=== PATIENT | female | born 1995 | race Caucasian/White ===

== ENCOUNTER 2022-04-05 13:20 | Inpatient (IN) | payer OTHER ==
[~2022-04-05] VITALS: Ht 160 cm; Wt 58.2 kg
[2022-04-05 15:50] LABS: BASOPHIL 0.1 % (0-2); EOSINOPHIL 0.1 % (0-5); HCT 41.8 % (37.0-47.0); HGB 13.5 g/dl (12.5-16.0); MCH 19.3 pg (25.0-31.0); MCHC 32.3 g/dL (32.0-36.0); MCV 59.9 fL (78.0-100.0); MONOCYTE 8.2 % (0-12); NEUTROPHIL 78.6 % (41-80); NRBC 0; PLT 366 K/uL (150-400); RBC 6.98 M/uL (4.20-5.40); RDW 18.4 % (11.5-14.0); WBC 16.3 K/uL (4.0-10.5)
[2022-04-05 16:11] LABS: BILIRUBIN 1+ mg/dL (NEGATIVE); BLOOD NEGATIVE Ery/uL (NEGATIVE); CLARITY CLEAR (CLEAR); COLOR YELLOW (YELLOW); GLUCOSE (U) NORMAL (NORMAL); LEUKOCYTES TRACE Leu/uL (NEGATIVE); NITRITE NEGATIVE (NEGATIVE); PROTEIN 1+ mg/dL (NEGATIVE)
[2022-04-05 16:31] LABS: CORONAVIRUS 2019 SARS-COV-2 NEGATIVE (NEGATIVE); INFLUENZA A NAA NEGATIVE (NEGATIVE)
[2022-04-05 16:31] LABS: ALBUMIN 2.8 g/dL (3.4-5.0); BILIRUBIN - TOTAL 0.6 mg/dL (0.2-1.0); BUN/CREAT RATIO (CALC) 12.5 RATIO; CREATININE 0.72 mg/dL (0.51-0.95); GLOBULIN (CALCULATION) 4.9 g/dL; POTASSIUM 3.3 mmol/L (3.5-5.1); TOTAL PROTEIN 7.7 g/dL (6.4-8.2)
[2022-04-05 16:35] LABS: BACTERIA 1+; URINARY RBC RARE
[2022-04-05 16:36] LABS: MUCOUS LARGE; SQUAMOUS EPITHELIAL CELLS 20-50
[2022-04-05 19:02] LABS: LACTIC ACID 1.6 mmol/L (0.4-1.9)
[2022-04-05] MEDS ORDERED: ALEVE220 M1 PO (22:28)
[2022-04-06 01:23] LABS: LACTIC ACID 3.2 mmol/L (0.4-1.9)
[2022-04-06 03:51] LABS: BASOPHIL 0.7 % (0-2); EOSINOPHIL 0.1 % (0-5); HCT 33.8 % (37.0-47.0); HGB 10.8 g/dl (12.5-16.0); LYMPHOCYTE 8.5 % (15-48); MCH 18.9 pg (25.0-31.0); MCV 59.1 fL (78.0-100.0); MONOCYTE 10.1 % (0-12); NEUTROPHIL 79.5 % (41-80); NRBC 0; PLT 280 K/uL (150-400); RBC 5.72 M/uL (4.20-5.40); RDW 16.3 % (11.5-14.0)
[2022-04-06 03:52] LABS: BILIRUBIN NEGATIVE (NEGATIVE); BLOOD 3+ Ery/uL (NEGATIVE); CLARITY CLEAR (CLEAR); COLOR YELLOW (YELLOW); GLUCOSE (U) NORMAL (NORMAL); LEUKOCYTES 2+ Leu/uL (NEGATIVE); NITRITE NEGATIVE (NEGATIVE); PROTEIN NEGATIVE (NEGATIVE); SPECIFIC GRAVITY <=1.005 (1.001-1.030); UROBILINOGEN 0.2 mg/dL (0.2-1.0); pH 6.5 (5.0-9.0)
[2022-04-06 03:55] LABS: WBC 13.6 K/uL (4.0-10.5)
[2022-04-06 04:02] LABS: BACTERIA 1+
[2022-04-06 04:15] LABS: BUN 8 mg/dL (7-18); BUN/CREAT RATIO (CALC) 12.5 RATIO; C-REACTIVE PROTEIN >18.00 mg/dL (<=0.90); CHLORIDE 96 mmol/L (98-107); CO2 (BICARBONATE) 25 mmol/L (21-32); CREATININE 0.64 mg/dL (0.51-0.95); GLUCOSE 105 mg/dL (74-106); POTASSIUM 3.8 mmol/L (3.5-5.1)
[2022-04-06 14:42] LABS: CREATININE 0.75 mg/dL (0.51-0.95); POTASSIUM 3.2 mmol/L (3.5-5.1)
[2022-04-07 06:14] LABS: HCT 29.2 % (37.0-47.0); HGB 9.3 g/dl (12.5-16.0); MCH 19.2 pg (25.0-31.0); MCHC 31.8 g/dL (32.0-36.0); MCV 60.3 fL (78.0-100.0); PLT 218 K/uL (150-400); RBC 4.84 M/uL (4.20-5.40); RDW 16.4 % (11.5-14.0); WBC 7.1 K/uL (4.0-10.5)
[2022-04-07 06:27] LABS: INR 1.92 (0.9-1.2); PROTHROMBIN TIME 21.3 SECONDS (11.9-13.9)
[2022-04-07 16:26] LABS: INR 1.8 (0.9-1.2); PROTHROMBIN TIME 20.3 SECONDS (11.9-13.9); PTT 36.6 SECONDS (24.9-34.6)
[2022-04-07 16:31] LABS: ALBUMIN 2.1 g/dL (3.4-5.0); BILIRUBIN - DIRECT 0.2 mg/dL (0.00-0.20); BILIRUBIN - TOTAL 0.4 mg/dL (0.2-1.0); BUN/CREAT RATIO (CALC) 12.9 RATIO; CREATININE 0.62 mg/dL (0.51-0.95); GLOBULIN (CALCULATION) 3.9 g/dL; POTASSIUM 3.5 mmol/L (3.5-5.1)
[2022-04-07 16:41] LABS: D-DIMER 4.4 ug/mLFEU (0.00-0.41)
[2022-04-08 20:08] LABS: ADENOVIRUS F 40/41 Not Detected (Not Detected); ASTROVIRUS Not Detected (Not Detected); C DIFFICILE TOXIN A/B Not Detected (Not Detected); CAMPYLOBACTER Not Detected (Not Detected); CRYPTOSPORIDIUM Not Detected (Not Detected); CYCLOSPORA CAYETANENSIS Not Detected (Not Detected); ENTAMOEBA HISTOLYTICA Not Detected (Not Detected); ENTEROAGGREGATIVE E COLI Not Detected (Not Detected); ENTEROPATHOGENIC E COLI Not Detected (Not Detected); ENTEROTOXIGENIC E COLI Not Detected (Not Detected); GIARDIA LAMBLIA Not Detected (Not Detected); NOROVIRUS GI/GII Not Detected (Not Detected); PLESIOMONAS SHIGELLOIDES Not Detected (Not Detected); ROTAVIRUS A Not Detected (Not Detected); SALMONELLA Not Detected (Not Detected); SAPOVIRUS Not Detected (Not Detected); SHIGA-TOXIN-PRODUCING E COLI Not Detected (Not Detected); SHIGELLA/ENTEROINVASIVE E COLI Not Detected (Not Detected); VIBRIO Not Detected (Not Detected); VIBRIO CHOLERAE Not Detected (Not Detected); YERSINIA ENTEROCOLITICA Not Detected (Not Detected)
[2022-04-09 07:08] LABS: HBSAG SCREEN Negative (Negative); HCV AB 0.1 (0.0-0.9); HEP A AB, IGM Negative (Negative); HEP B CORE AB, IGM Negative (Negative)
[2022-04-10 15:11] LABS: ANTIMYELOPEROXIDASE (MPO) ABS <0.2 units (0.0-0.9); ANTIPROTEINASE 3 (PR-3) ABS 0.6 units (0.0-0.9); PERINUCLEAR (P-ANCA) <1:20 titer (Neg:<1:20)
== END 2022-04-07 23:45 | disposition other institution (70) | DRG 872 ==
LOC: FER 13:20 → FMS 19:26
PROVIDERS: Nurse Practitioner Acute Care; Physician Assistant; ADMIT Family Medicine
DX: A41.9 Sepsis, unspecified organism (principal); N30.01 Acute cystitis with hematuria; K92.2 Gastrointestinal hemorrhage, unspecified; D62 Acute posthemorrhagic anemia; E87.1 Hypo-osmolality and hyponatremia; D68.9 Coagulation defect, unspecified; Z20.822 Contact with and (suspected) exposure to COVID-19; E87.6 Hypokalemia; K52.9 Noninfective gastroenteritis and colitis, unspecified; N93.9 Abnormal uterine and vaginal bleeding, unspecified; D50.9 Iron deficiency anemia, unspecified; K80.20 Calculus of gallbladder without cholecystitis without obstruction; N83.201 Unspecified ovarian cyst, right side; Z80.3 Family history of malignant neoplasm of breast
CPT/HCPCS: 36415; 80048; 80053; 80074; 80076; 81001; 83516; 83520; 83540; 83550; 83605; 83690; 84145; 84443; 85018; 85025; 85362; 85379; 85384; 85610; 85730; 86038; 86140; 86256; 87040; 87045; 87046; 87088; 87205; 87449; G0378; J0692; J1170; J1650; J1885; J2270; J2405; J2543; J2930; J3370; J7030; J7050; Q0162; Q9967; U0002